=== PATIENT | female | born 1980 | race Caucasian/White ===

== ENCOUNTER 2025-01-12 12:29 | Outpatient (CLI) | payer BC, SELFPAY ==
--- NOTE | ~2025-01-12 | MM_ITS ---
EXAMINATION: MM screening rose BI w guido HISTORY: Screening TECHNIQUE: Craniocaudal and mediolateral oblique 3-D tomosynthesis images were obtained and synthetic 2-D images were generated. CAD analysis was submitted and interpreted. COMPARISON: No prior mammogram is available for comparison at this institution. BREAST PARENCHYMAL COMPOSITION: Dense: The breasts are extremely dense, which lowers the sensitivity of mammography. FINDINGS: There is an obscured mass in the retroareolar location of the left breast, middle third. No evidence for malignancy in the right breast. IMPRESSION: 1. Obscured left breast mass. 2. Additional mammographic views and possible breast ultrasound are recommended. BI-RADS Category 0: Incomplete: Needs additional imaging evaluation. Reviewed, dictated and finalized at location B. IMPRESSION: 1. Obscured left breast mass. 2. Additional mammographic views and possible breast ultrasound are recommended . BI-RADS Category 0: Incomplete: Needs additional imaging evaluation.
== END 2025-01-12 12:30 | disposition home or self-care (01) ==
LOC: MICIMG 12:34
PROVIDERS: PCP Obstetrics & Gynecology; Visit Provider Obstetrics & Gynecology
DX: Z12.31 Encounter for screening mammogram for malignant neoplasm of breast (principal); R92.8 Other abnormal and inconclusive findings on diagnostic imaging of breast
CPT/HCPCS: 77063; 77067

== ENCOUNTER 2025-02-03 07:59 | Outpatient (CLI) | payer BC, SELFPAY ==
--- NOTE | ~2025-02-03 | MM_ITS ---
EXAMINATION: MM diagnostic rose LT w guido INDICATION: 44-year old female; BI-RADS 0, callback to evaluate Left breast obscured mass COMPARISON: 01/12/2025 TECHNIQUE: Digital breast tomosynthesis True lateral view and spot compression pain CC and MLO views of Left breast were obtained with computer-aided detection to assist in interpretation of the study. FINDINGS: The breasts are extremely dense, which lowers the sensitivity of mammography. The focal asymmetry seen in the retroareolar, middle third Left breast on the screening mammogram eff aces on additional views, compatible with normal overlapping tissue.. IMPRESSION: Left breast finding represents superimposition of fibroglandular tissue. No further investigation nec essary. RECOMMENDATION: Annual screening mammography in 12 months BI-RADS 2, BENIGN Reviewed, dictated and finalized at location B. IMPRESSION: Left breast finding represents superimposition of fibroglandular tissue. No fur ther investigation necessary. RECOMMENDATION: Annual screening mammography in 12 months BI-RADS 2, BENIGN
--- OUTSIDE RECORDS SUMMARY | 2025-02-03 08:07 | XMS_ITS | Clinical Summary ---
Author Organization [facility] Address [address] [place] [address] Care Team Providers Care Maintenance Plumber Name Role Phone Delano Elmore DO Primary Care Provider + Allergies No known active allergies Medications ibuprofen (ADVIL,MOTRIN) 600 mg tablet Take 1 tablet (600 mg total) by mouth every 6 (six) hours as needed for pain 30 tablet 12/15/2019 Active sertraline (ZOLOFT) 50 mg tablet Take 1 tablet (50 mg total) by mouth nightly Active ALPRAZolam (XANAX) 0.5 mg tablet Take 1 tablet (0.5 mg total) by mouth daily as needed for anxiety Active Active Problems Problem Noted Date Diagnosed Date Chest pain 05/08/2024 EKG abnormalities 05/08/2024 Other forms of angina pectoris 05/08/2024 Resolved Problems Problem Noted Date Diagnosed Date Resolved Date Left ureteral stone 12/16/2019 05/08/20 24 Medical History Medical History Date Comments Kidney stones Social History Tobacco Use Types Packs/Day Years Used Date Smoking Tobacco: Never Smokeless Tobacco: Never Alcohol Use Standard Drinks/Week Comments Never 0 (1 standard drink = 0.6 oz pur e alcohol) [facility] Utilities Answer Date Recorded In the past 12 months has [employer], gas, oil, or water [employer] threatened to shut off services in your home? No 05/09/2024 Social Connection and Isolat ion Panel [NHANES] Answer Date Recorded In a typical week, how many times do you talk on the phone with family, friends, or neighbors? More than three times a week 05/09/2024 How often do you get togethe r with friends or relatives? More than three times a week 05/09/2024 How often do you attend chur ch or latter-day services? Never 05/09/2024 Do you belong to any clubs o r organizations such as confucianism groups, unions, fraternal or athletic groups, or school groups? No 05/09/2024 How often do you attend meet ings of the clubs or organizations you belong to? Never 05/09/2024 Are you , , di vorced, , never , or living with a partner? 05/09/2024 AUDIT-C Answer Date Recorded Q1: How often do you have a drink containing alc ohol? Never 12/16/2019 Average Number of Drinks Not on file 020 Frequency of Binge Drinking Not on file 11/27 Overall Financial Resource Strain (CARDIA) Answe r Date Recorded How hard is it for you to pa y for the very basics like food, housing, medical care, and heating? Not hard at all 05/09/2024 Hunger Vital Sign Answer Date Recorded Within the past 12 months, y ou worried that your food would run out before you got the money to buy more. Never true 05/09/20 24 Within the past 12 months, t he food you bought just didn't last and you didn't have money to get more. Never true 05/09/2024 PRAPARE - Transportation Answer Date Re corded In the past 12 months, has l ack of transportation kept you from medical appointments or from getting medications? No 04/29 In the past 12 months, has l ack of transportation kept you from meetings, work, or from getting things needed for daily living? No 05/09/2024 Housing Stability Vital Sign Answer Ty e Recorded In the last 12 months, was t here a time when you were not able to pay the mortgage or rent on time? No 05/09/2024 In the past 12 months, how m any times have you moved where you were living? 0 05/09/2024 At any time in the past 12 m [facility], were you homeless or living in a correction (including now)? No 05/09/2024 Personal Safety Answer Date Recorded Have you ever been in or are you currently in a harmful physical or emotional relationship or is someone making you feel afraid or unsafe? Denies 05/08/2024 Comments No Sex and Gender Information Value Date Recorded Sex Assigned at Not on file Legal Sex Female 4:28 AM CDT Gender Identity Not on file Sexual Orientation Not on file Obstetrics History Last Filed Vital Signs Vital Sign Reading Time Taken Comments Blood Pressure 119/66 05/10/2024 3:23 PM INFORMATION DELIVERY ANALYST Pulse 69 05/10/2024 3:23 PM INFORMATION DELIVERY ANALYST Temperature 36.5 C (97.7 F) 05/10/2024 3:23 PM INFORMATION DELIVERY ANALYST Respiratory Rate 16 05/10/2024 3:23 PM INFORMATION DELIVERY ANALYST Oxygen Saturation 97% 05/10/2024 3:23 PM INFORMATION DELIVERY ANALYST Inhaled Oxygen Concentration - - Weight 57.6 kg (126 lb 14.4 oz) 024 11:15 PM INFORMATION DELIVERY ANALYST Height 165.1 cm (5' 5) 05/08/2024 11:1 5 PM INFORMATION DELIVERY ANALYST Body Mass Index 21.12 05/08/2024 11:15 PM INFORMATION DELIVERY ANALYST Plan of Treatment Health Maintenance Due Date Last Done Comments Breast Cancer Screening-Mammogram 1979 Cervical Cancer Screening 1979 Colon Cancer Screening-Colonoscopy 1979 Depression Screening 1979 Hepatitis C Screening 1979 DTaP/Tdap/Td Vaccine (1 - Tdap) 1990 Hepatitis B Screening 1997 Regular Well Visit/Exam 18-64 1997 HPV Vaccines (1 - 3-dose SCD M series) 2006 Covid-19 Vaccine (3 - 2023-2 5 season) 2024 10/03/2020, 09/10/2020 Influenza Vaccine (#1) 2025 Pneumococcal vaccine <65 Aged Out No longer eligible based on patient's age to complete this topic Insurance [facility] [employer] CHOICE ANTHEM ACCESS CHOICE Advance Directives For more information, please contact: [phone] * Full Code (Latest Code Status on File) Date Activated Date Inactivated Comments 05/08/2024 11:06 PM 05/10/2024 7:48 PM * Full Code Date Activated Date Inactivated Comments 12/16/2019 5:17 PM 12/17/2019 1:48 PM Care Teams Maintenance Plumber Relationship Specialty Start Date End Date Delano Elmore DO [address] [address] PCP - General Family Practice 05/08/24
--- OUTSIDE RECORDS SUMMARY | 2025-02-03 08:07 | XMS_ITS | Clinical Summary ---
Author Organization [facility] Address [address] [place] [address] Care Team Providers Care Solutions Sales Executive Name Role Phone RamírezDelano Primary Care Provider [phone] Source Comments [facility],non-owned Affiliates and Associated Physician Practices is amultiple site organization consisting of ambulatory clinics and hospital sitesin [place], [place], [place] and [place]. This disclosure is being madepursuant to the Care Everywhere program and may not contain all information available regarding this patient. Last updated 18.[facility] Allergies No known active allergies Medications * Be aware that medications may not be up to date on this document. Alwaysverify current medications with the patient. ALPRAZolam (Xanax) 0.5 MG tablet TAKE 1 TABLET DAILY NEEDED FOR ANXIETY 4 Active sertraline (Zoloft) 50 MG tablet Take 1 (one) tablet by mouth once daily 4 Active naproxen (Naprosyn) 500 MG tabletIndication s:Cervical radiculitis Take 1 (one) tablet by mouth 2 times daily 60 tablet 4 Active Additional Information Patient not taking.Reported on 11/16/2023 cyclobenzaprine (Flexeril) 5 MG tabletIndication s:Strain of neck muscle, initial encounter Take 1 (one) tablet to 2 (two) tablets by mouth 3 times daily as needed 60 tablet 4 Active Additional Information Patient not taking.Reported on 11/16/2023 methylPREDNISolo ne (Medrol Dosepak) 4 MG tabletIndication s:Acute non-recurrent maxillary sinusitis Take by mouth as directed Take as directed by mouth per package instructions. 21 tablet 4 Active amoxicillin-clav ulanate (Augmentin) 875-125 MG tabletIndication s:Acute non-recurrent maxillary sinusitis Take 1 (one) tablet by mouth 2 times daily with morning and evening meal 20 tablet 4 Active Active Problems No known active problems Encounters Date Type Department Care Team Description 12/06/2024 Patient Outreach [facility] - Care Coordination [address] [place] [address] [facility] Outreach Preventive Care from Last 3 Months Immunizations Immunization Administration Dates Next Due Covid Pfizer primary monoval ent 12+ yr 0.3mL Purple cap 10/03/2020,09/10/2020 Family History Medical History Relation Name Comments Hypertension Father Hypertension Mother Relation Name Status Comments Father Alive Mother Alive Social History Tobacco Use Types Packs/Day Years Used Date Smoking Tobacco: Some Days Cigarettes Smokeless Tobacco: Never Tobacco Cessation:Ready to Q uit: Not Asked; Counseling Given: Not Answered Alcohol Use Standard Drinks/Week Comments Never 0 (1 standard drink = 0.6 oz pur e alcohol) PHQ-2 Answer Date Recorded Patient Health Questionnaire-2 Score 0 10/09/2023 Comments Unknown Sex and Gender Information Value Date Recorded Sex Assigned at Not on file Legal Sex Female 9:11 AM CDT Gender Identity Not on file Sexual Orientation Not on file Last Filed Vital Signs Vital Sign Reading Time Taken Comments Blood Pressure 110/70 02/10/2024 1:27 PM CDT Pulse 66 02/10/2024 1:27 PM CDT Temperature - - Respiratory Rate 22 02/10/2024 1:27 PM CDT Oxygen Saturation 96% 09/29/2023 7:53 AM CDT Inhaled Oxygen Concentration - - Weight 59 kg (130 lb) 02/10/2024 1:27 PM CDT Height 165.1 cm (5' 5) 02/10/2024 1:27 PM CDT Body Mass Index 21.63 02/10/2024 1:27 PM CDT Plan of Treatment Health Maintenance Due Date Last Done Comments COLOGKILEY (AGES 45-75) - COL ON CA SCREENING 1979 COLON MONITORING 1979 COLONOSCOPY - COLON CA SCREENING 1979 CT COLONOGRAPHY - COLON CA SCREENING 1979 Colorectal Cancer Screening 1979 FIT - COLON CA SCREENING 1979 FLEX SIG - COLON CA SCREENING 1979 LIPID TESTING 1979 MAMMOGRAM 1979 HIV SCREENING 1994 HEPATITIS C SCREENING 03/31/1997 DTAP/TDAP/TD VACCINES (1 - Tdap) 1998 HEPATITIS B VACCINE (1 of 3 - 19+ 3-dose series) 1998 PNEUMOCOCCAL VACCINE (1 of 2 - PCV) 1998 PAP SMEAR 2000 HPV VACCINE (1 - 3-dose SCDM series) 2006 COVID-19 VACCINE (3 - 2023-2 5 season) 2024 10/03/2020, 09/10/2020 DEPRESSION SCREENING 06/29/2024 09/29/2023 INFLUENZA VACCINE (#1) 2025 ZOSTER VACCINE (1 of 2) 2029 HIB VACCINE Aged Out No longer eligi ble based on patient's age to complete this topic MENINGOCOCCAL (Group B) VACCINE SHARED DECISION-MAKING Aged Out No longer eligible based on patient's age to complete this topic MENINGOCOCCAL GROUPS A/C/Y/W VACCINE Aged Out No longer eligible b ased on patient's age to complete this topic Insurance [employer] Sales Executive Relationship Specialty Start Date End Date Delano Elmore DO [address] [address] PCP - General Family Medicine 09/29/23
== END 2025-02-03 08:00 | disposition home or self-care (01) ==
LOC: ANHIMG 08:02
PROVIDERS: Visit Provider Obstetrics & Gynecology
DX: N63.20 Unspecified lump in the left breast, unspecified quadrant (principal)
CPT/HCPCS: 77061; 77065; G0279